=== PATIENT | female | born 2000 | race Caucasian/White ===

== ENCOUNTER 2022-11-17 02:25 | Emergency (ER) | payer MEDICAID ==
[~2022-11-17] VITALS: Ht 162.6 cm; Wt 91.6 kg
[2022-11-17 02:33] VITALS: BP 114/71
--- NOTE | 2022-11-17 02:33 | NUR ---
to bed ambulatory
[2022-11-17] MEDS ORDERED: ACETAMINOPHEN EXTRA STRENGTH 500 MG TAB PO ONE (02:40)
--- NOTE | 2022-11-17 02:58 | NUR ---
UA COLLECTED AND SENT TO LAB
[2022-11-17 03:02] LABS: APPEARANCE,URINE HAZY (CLEAR); COLOR,URINE ORANGE (YELLOW); PH,URINE 5.5 (5.0-9.0); UGLUCOSE NEGATIVE (NEGATIVE)
[2022-11-17 03:03] LABS: BILIRUBIN,URINE 1+ (NEGATIVE); BLOOD, URINE LARGE (NEGATIVE); LEUKOCYTE ESTERASE ,URINE TRACE (NEGATIVE); NITRITE, URINE NEGATIVE (NEGATIVE)
[2022-11-17 03:05] LABS: RBC,URINE TOO NUMEROUS TO COUN /HPF (0-5)
--- NOTE | 2022-11-17 03:05 | NUR ---
22 Y/O F PRESENTS WITH HEAD PAIN AND A FEVER YESTERDAY PT STATED. PT APPEARS WITH A RASH LIKE APPEARANCE THROUGHOUT BODY WITH PAIN 10/10. PT STATED SHE HAS HAD HEAD PAIN X2 WEEKS, AND THE RASH XTODAY. PT STATED SHE FELT DIZZY EARLIER WITH NV BUT NO DIARRHEA. PT STATES SHE HAS SOME PAIN WHEN URINATING AND PT IS TAKING ARISTOCILIN CURRENTLY XYESTERDAY. PMH-PT DENIES NKA
[2022-11-17] MEDS ORDERED: CEPH-588 PO (03:08)
[2022-11-17] MEDS ORDERED: PYR100 PO (03:08)
[2022-11-17] MEDS ORDERED: cephALEXin 500 MG CAP PO ONE (03:10)
--- NOTE | 2022-11-17 03:30 | NUR ---
Patient discharged with v/s stable. Written and verbal after care instructions given and explained. Patient alert, oriented and verbalized understanding of instructions. Ambulatory with steady gait. All questions addressed prior to discharge. ID band removed. Patient advised to follow up with PMD. Rx of KEFLEX AND PYRIDIUM given. Opportunity to ask questions provided and answered.
== END 2022-11-17 03:34 | disposition home or self-care (01) ==
LOC: MED 02:25
DX: N39.0 Urinary tract infection, site not specified (principal)
CPT/HCPCS: 81001; 81025; 87086; 99283